=== PATIENT | male | born 2000 | race Caucasian/White ===

== ENCOUNTER 2023-08-19 12:57 | Emergency (ER) | payer SELFPAY ==
[~2023-08-19] VITALS: Ht 175.3 cm; Wt 72.6 kg
[2023-08-19 13:03] VITALS: O2SAT 99
[2023-08-19] MEDS ORDERED: LIDOCAINE 2%-EPI 1:100,000 20 ML VIAL ONE (14:09)
[2023-08-19] MEDS: LIDOCAINE 2%-EPI 1:100,000 20 ML VIAL TP ONE (14:17)
[2023-08-19] MEDS ORDERED: SULF1TAB48 PO (15:05)
== END 2023-08-19 15:09 | disposition home or self-care (01) ==
LOC: ER 13:01
DX: L02.413 Cutaneous abscess of right upper limb (principal); L72.3 Sebaceous cyst; Z79.899 Other long term (current) drug therapy
CPT/HCPCS: A4606; A4663

== ENCOUNTER 2023-08-22 09:31 | Emergency (ER) | payer SELFPAY ==
[~2023-08-22 09:31] MED LIST: SULF1TAB48 PO
== END 2023-08-22 09:51 | disposition left against medical advice (07) ==
LOC: ER 09:31
DX: Z48.00 Encounter for change or removal of nonsurgical wound dressing (principal); Z53.21 Procedure and treatment not carried out due to patient leaving prior to being seen by health care provider